=== PATIENT | male | born 1975 | race African-American/Black ===

== ENCOUNTER 2018-01-13 23:39 | Emergency (ER) | payer BC ==
[~2018-01-13] VITALS: Ht 177.8 cm; Wt 171.5 kg
[~2018-01-13 23:39] MED LIST: PERCOCET 5-3251 EACH PO; PHENERGAN 25 MG25 MG PO; PREVACID 30MG C30 M1 PG; ULTRAM 50MG TAB50 MG PO
[2018-01-13] MEDS ORDERED: MOBIC15 MG PO (23:56)
[2018-01-13] MEDS ORDERED: NORVASC5 MG PO (23:57)
[2018-01-13] MEDS ORDERED: COZAAR 25 MG TA25 M1 PO (23:57)
[2018-01-14 00:25] LABS: ABSOLUTE NEUTROPHILS 4.4 thou/uL (1.4-8.2); BASOPHILS 0.8 % (0.0-2.0); EOSINOPHILS 4.9 % (0.0-3.0); HEMATOCRIT 43.6 % (42.0-52.0); HEMOGLOBIN 14.7 gm/dL (14.0-18.0); LYMPHOCYTES 24.9 % (24.0-44.0); MCHC 33.7 g/dL (28.0-37.0); MCV 89.2 fL (80.0-100.0); MONOCYTES 6.1 % (1.0-8.0); PLATELET COUNT 304 thou/uL (150-400); POLYS 63.3 % (36.0-66.0); RBC 4.89 mil/uL (4.50-6.00); RDW 13.3 % (10.5-14.5); WBC 6.9 thou/uL (4.0-11.0)
[2018-01-14 00:32] LABS: ANION GAP 8 mmol/L (7-16); BUN 17 mg/dL (7-18); CHLORIDE 105 mmol/L (98-107); CO2 26 mmol/L (21-32); CREATININE 1.1 mg/dL (0.7-1.3); GLUCOSE 201 mg/dL (74-106); SODIUM 139 mmol/L (136-145)
[2018-01-14 00:42] LABS: ALBUMIN 3.4 g/dL (3.4-5.0); LIPASE 429 U/L (73-393); SGOT 21 U/L (15-37); SGPT 45 U/L (30-65); TOTAL BILIRUBIN 0.3 mg/dL (<0.1-1.0); TROPONIN-I <0.06 ng/mL (<0.06)
[2018-01-14 00:54] LABS: URINE BILIRUBIN NEGATIVE (Negative); URINE BLOOD 2+ (Negative); URINE CLARITY CLEAR; URINE COLOR YELLOW; URINE GLUCOSE-RANDOM* 1+ (Negative); URINE KETONES NEGATIVE (Negative); URINE LEUKOCYTES-REFLEX NEGATIVE (Negative); URINE NITRITE-REFLEX NEGATIVE (Negative); URINE PROTEIN (DIPSTICK) NEGATIVE (Negative); URINE SPECIFIC GRAVITY 1.015 (1.005-1.035); URINE UROBILINOGEN 0.2 E.U./dl (0.2-1.0)
[2018-01-14 01:05] LABS: BACTERIA-REFLEX None Seen /HPF (None Seen); CASTS None Seen /LPF (None Seen); CRYSTALS None Seen /LPF (None Seen); MUCUS None Seen strn/LPF (None Seen); SQUAMOUS None Seen /LPF (0-3); URINE RBC 3-10 Few /HPF (0-2); URINE WBC-REFLEX None Seen /HPF (0-5)
[2018-01-14] MEDS ORDERED: MORPHINE SULFAT15 M3 PO (01:45)
[2018-01-14] MEDS ORDERED: FLOMAX0.4 MG PO (01:45)
[2018-01-14] MEDS ORDERED: ONDANSETRON HCL4 M2 PO (01:45)
[2018-01-14 02:02] VITALS: BP 136/78
== END 2018-01-14 02:05 | disposition home or self-care (01) ==
LOC: ER 23:39
PROVIDERS: Emergency Medicine
DX: N20.0 Calculus of kidney (principal); Z91.013 Allergy to seafood